=== PATIENT | female | born 1985 | race Caucasian/White ===

== ENCOUNTER 2017-05-13 19:32 | Emergency (ER) | payer MEDICAID ==
[~2017-05-13] VITALS: Ht 162.6 cm; Wt 91.0 kg
[2017-05-13 19:34] VITALS: BP 130/74; PULSE 94; RESP 18; TEMP 101.2; O2SAT 98
[2017-05-13] MEDS ORDERED: ACETAMINOPHEN 325 MG TAB PO ONE (19:45)
--- NOTE | 2017-05-13 19:50 | PD ---
HPI Chief Complaint: ENT Complaint Time Seen by Provider: 19:38 Travel History International Travel<30 days: No Contact w/Intl Traveler<30days: No Traveled to known affect area: No History of Present Illness HPI 32-year-old female that presents to the ED for evaluation of left ear pain with drainage. Per patient she's had this for about 2 days. Per patient she's been battling some cold like symptoms for some time. Per patient, or significant the past 2 days with the ear. Per patient she did not have ear infection before. Per patient she had congestion and cough but that seems to have improved. Per patient she does have a son who was recently diagnosed with an ear infection. She stick and Flonase for it with minimal relief. She denies any chest pain or shortness of breath. Per patient the pain is mostly left ear. States having a fever. Denies any sore throat or congestion at this time. States the drainage is yellowish from the left ear. PFSH Past Medical History Medical History: Denies Significant Hx Diminished Hearing: No Tetanus Vaccination: Unknown Influenza Vaccination: No ?: Not LMP: 05/09/17 Past Surgical History Surgical History: No Previous Surgery Social History Alcohol Use: No Tobacco Use: No Substance Use: No Allergies-Medications (Allergen,Severity, Reaction): Coded Allergies: No Known Allergies (Unverified , 05/13/17) Reported Meds & Prescriptions Reported Meds & Active Scripts Active No Active Prescriptions or Reported Medications Review of Systems Except as stated in HPI: all other systems reviewed are Neg Physical Exam Narrative GENERAL: Well-nourished, well-developed patient in no apparent distress. SKIN: Warm and dry. HEAD: Atraumatic. Normocephalic. EYES: Pupils equal and round reactive to light and accommodation. No scleral icterus. No injection or drainage. ENT: No nasal bleeding or discharge. Mucous membranes pink and moist. Right TM appears to be clear with no sign of infection or perforation. Left TM is red and bulging with what appears to be a slight perforation of the eardrum with drainage coming from the eardrum. No mastoid tenderness. Ear canals are intact bilaterally. No lymphadenopathy. Nostril mucosa is red and moist with clear mucus noted. No sinus tenderness to palpation noted. Tonsils are not enlarged or swollen. No ulvua Deviation. Tongue is midline. NECK: Trachea midline. No JVD. No meningeal signs noted CARDIOVASCULAR: Regular rate and rhythm. RESPIRATORY: No accessory muscle use. Clear to auscultation. Breath sounds equal bilaterally. GASTROINTESTINAL: Abdomen soft, non-tender, nondistended. Hepatic and splenic margins not palpable. MUSCULOSKELETAL: Extremities without clubbing, cyanosis, or edema. No obvious deformities. NEUROLOGICAL: Awake and alert. No obvious cranial nerve deficits. Motor grossly within normal limits. Five out of 5 muscle strength in the arms and legs. Normal speech. PSYCHIATRIC: Appropriate mood and affect; insight and judgment normal. Data Data Last Documented VS Vital Signs Date Time Temp Pulse Resp B/P (MAP) Pulse Ox O2 Delivery O2 Flow Rate FiO2 05/13/17 19:34 101.2 94 18 130/74 (92) 98 Orders Orders Acetaminophen (Tylenol) (05/13/17 19:45) Amoxicillin (Trimox) (05/13/17 20:00) Ed Discharge Order (05/13/17 19:47) MDM Medical Decision Making Medical Screen Exam Complete: Yes Emergency Medical Condition: Yes Medical Record Reviewed: Yes Differential Diagnosis Otitis media versus otitis externa versus ear perforation Narrative Course 32-year-old female that presents to the ED for evaluation of left ear pain. Patient was properly examined and was found to have signs and symptoms consistent with appears to be otitis media with perforated eardrum. At this time we'll treat with amoxicillin. Patient was given Tylenol for the fever here. Given prescription for amoxicillin and prednisone. Told to follow closely with PCP. Motrin or Tylenol as needed. See ED for worsening symptoms. Diagnosis Primary Impression: Otitis media Qualified Codes: H66.012 - Acute suppurative otitis media with spontaneous rupture of ear drum, left ear Patient Instructions: General Instructions Additional Instructions: Motrin and Tylenol for pain and fever. You can use [id number] antihistamine as well as well as Mucinex as needed for runny nose and congestion. Cough drops for cough as needed. Drink plenty of fluids. Follow-up with PCP. See ED for worsening symptoms. Med/Other Pt SpecificInfo: Prescription(s) given Scripts No Active Prescriptions or Reported Meds Disposition: 01 DISCHARGE HOME Condition: Stable Kvng Denson May 13, 2017 19:50
[2017-05-13] MEDS ORDERED: PRED20 PO (19:51)
[2017-05-13] MEDS ORDERED: AMOX875T PO (19:51)
[2017-05-13] MEDS ORDERED: AMOXICILLIN 875 MG TAB PO ONE (20:00)
== END 2017-05-13 19:58 | disposition home or self-care (01) ==
LOC: PHEFT 19:32
DX: H66.012 Acute suppurative otitis media with spontaneous rupture of ear drum, left ear (principal)
CPT/HCPCS: 99283

== ENCOUNTER 2017-06-30 09:06 | Emergency (ER) | payer MEDICAID ==
[~2017-06-30] VITALS: Ht 162.6 cm; Wt 92.3 kg
[~2017-06-30 09:06] MED LIST: AMOX875T PO; PRED20 PO
[2017-06-30 09:11] VITALS: BP 118/70; PULSE 77; RESP 16; TEMP 98.3; O2SAT 97
[2017-06-30] MEDS ORDERED: BENZ100 PO (10:23)
--- NOTE | 2017-06-30 10:23 | PD ---
HPI Chief Complaint: Cold / Flu Symptoms Time Seen by Provider: 09:52 Travel History International Travel<30 days: No Contact w/Intl Traveler<30days: No Traveled to known affect area: No History of Present Illness HPI 32-year-old female here with cough and URI symptoms for 1 week. Reports the cough is nonproductive. No chest pain or shortness of breath. No fever chills. Symptom severity is mild. No aggravating or alleviating factors. Cough is unrelieved by [id number] medication. PFSH Past Medical History Medical History: Denies Significant Hx Diminished Hearing: No Influenza Vaccination: No ?: Not LMP: 06/01/17 Past Surgical History Surgical History: No Previous Surgery Social History Alcohol Use: No Tobacco Use: No Substance Use: No Allergies-Medications (Allergen,Severity, Reaction): Coded Allergies: No Known Allergies (Unverified , 06/30/17) Reported Meds & Prescriptions Reported Meds & Active Scripts Active No Active Prescriptions or Reported Medications Review of Systems Except as stated in HPI: all other systems reviewed are Neg General / Constitutional: No: Fever Eyes: No: Visual changes HENT: Positive: Sore Throat, Rhinitis, Congestion Cardiovascular: No: Chest Pain or Discomfort Respiratory: Positive: Cough Gastrointestinal: No: Abdominal Pain Genitourinary: No: Dysuria Physical Exam Narrative GENERAL: Alert and well-appearing 32-year-old female SKIN: Warm and dry. HEAD: Normocephalic. EYES: No injection or drainage. NECK: Supple. CARDIOVASCULAR: Regular rate and rhythm without murmurs, gallops, or rubs. RESPIRATORY: Breath sounds equal bilaterally. No accessory muscle use. No wheezing, rales, rhonchi GASTROINTESTINAL: Abdomen soft, non-tender, nondistended. MUSCULOSKELETAL: No cyanosis, or edema. BACK: Nontender without obvious deformity. No CVA tenderness. Data Data Last Documented VS Vital Signs Date Time Temp Pulse Resp B/P (MAP) Pulse Ox O2 Delivery O2 Flow Rate FiO2 06/30/17 09:11 98.3 77 16 118/70 (86) 97 MDM Medical Decision Making Medical Screen Exam Complete: Yes Emergency Medical Condition: Yes Differential Diagnosis URI, bronchitis, pneumonia Narrative Course 32-year-old female here with cough 1 week. She is well-appearing. No adventitious breath sounds. Vital signs are stable. She will be treated for URI Diagnosis Primary Impression: URI (upper respiratory infection) Qualified Codes: J06.9 - Acute upper respiratory infection, unspecified Referrals: [facility] Departure Forms: School Release, Return to School Date: Jul 01, 2017 Tests/Procedures Scripts Benzonatate (Tessalon Perles) 100 Mg Cap 200 MG PO TID Y for COUGH, #12 CAP 0 Refills Prov: Krista Chavez 06/30/17 Disposition: 01 DISCHARGE HOME Condition: Stable Krista Chavez Jun 30, 2017 10:23
== END 2017-06-30 10:33 | disposition home or self-care (01) ==
LOC: PHEFT 09:06
DX: J06.9 Acute upper respiratory infection, unspecified (principal)
CPT/HCPCS: 99283